=== PATIENT | female | born 1990 | race Caucasian/White ===

== ENCOUNTER 2017-05-08 04:17 | Inpatient (IN) | payer OTHER ==
[2017-05-08] MEDS ORDERED: LACTATED RINGER'S 1,000 ML IV (05:20)
[2017-05-08] MEDS ORDERED: BUTORPHANOL 2 MG INJ IV (05:30)
[2017-05-08] MEDS ORDERED: CARBOPROST 250 MCG INJ IM (05:30)
[2017-05-08] MEDS ORDERED: IBUPROFEN 600 MG TAB PO (05:30)
[2017-05-08] MEDS ORDERED: METHYLERGONOVINE 0.2 MG INJ IM (05:30)
[2017-05-08] MEDS ORDERED: LIDOCAINE 1% (MPF) 30 ML INJ INJ (05:30)
[2017-05-08] MEDS ORDERED: OXYTOCIN 30 UNITS/LR 500 ML IV (05:30)
[2017-05-08] MEDS ORDERED: MISOPROSTOL 200 MCG TAB PR (05:30)
[2017-05-08] MEDS: LACTATED RINGER'S 1,000 ML IV (05:59)
[2017-05-08 06:42] LABS: ADD MAN DIFF? NO
[2017-05-08 06:57] LABS: BASOPHIL # 0.1 10^3/ul (0.0-0.1); BASOPHILS % 0.3 % (0.0-2.0); EOSINOPHILS # 0.6 10^3/ul (0.0-0.5); EOSINOPHILS % 3.5 % (0.0-7.0); HEMATOCRIT 40.9 % (37.0-47.0); HEMOGLOBIN 14.3 g/dl (12.0-16.0); LYMPHOCYTES # 2.2 10^3/ul (0.8-2.9); LYMPHOCYTES % 12.7 % (15.0-51.0); MEAN CORPUSCULAR VOLUME 85.7 fl (82.0-101.0); MEAN PLATELET VOLUME 10.3 fl (7.4-10.4); MONOCYTE # 1.2 10^3/ul (0.3-0.9); NEUTROPHIL # 13.4 10^3/ul (1.6-7.5); NEUTROPHILS % 75.9 % (39.0-77.0); PLATELET COUNT 245 10^3/UL (140-415); RED BLOOD COUNT 4.77 10^6/ul (4.20-5.40)
[2017-05-08 06:57] LABS: WHITE BLOOD COUNT 17.6 10^3/ul (4.8-10.8)
[2017-05-08 07:22] LABS: INR 0.99; PROTIME 13.2 Sec (11.9-14.9)
[2017-05-08 07:23] LABS: PARTIAL THROMBOPLASTIN TIME 32.3 Sec (25.0-35.0)
[2017-05-08] MEDS ORDERED: LIDOCAINE 2% (SDV) 5 ML INJ (07:51)
[2017-05-08 07:54] LABS: HEPATITIS B SURFACE ANTIGEN NEGATIVE (NEGATIVE)
[2017-05-08] MEDS ORDERED: FENTAnyl 2MCG/ML-ROPIV 0.2% 100 ML (07:56)
[2017-05-08] MEDS ORDERED: FENTAnyl 2MCG/ML-ROPIV 0.2% 100 ML BAG EPI (08:30)
[2017-05-08] MEDS ORDERED: NALOXONE (0.4 MG/ML) INJ IV (08:30)
[2017-05-08] MEDS ORDERED: ONDANSETRON 4 MG INJ IV ×2 (08:30→11:30)
[2017-05-08] MEDS ORDERED: DIPHENHYDRAMINE 50 MG INJ IV (08:30)
[2017-05-08 08:38] LABS: AMPHETAMINE/METHAMPHETAMINE Negative (NEGATIVE); BARBITURATES Negative (NEGATIVE); BENZODIAZEPINES Negative (NEGATIVE); CANNABINOIDS Negative (NEGATIVE); COCAINE Negative (NEGATIVE); OPIATES Negative (NEGATIVE)
[2017-05-08] MEDS: OXYTOCIN 30 UNITS/LR 500 ML IV ×3 (09:42→12:03)
[2017-05-08] MEDS ORDERED: OXYCODONE/ASPIRIN (4.88/325) TAB PO ×2 (11:30)
[2017-05-08] MEDS ORDERED: HYDROCODONE/APAP (5/325) TAB PO ×2 (11:30)
[2017-05-08] MEDS ORDERED: ACETAMINOPHEN 325 MG TAB PO (11:30)
[2017-05-08] MEDS: IBUPROFEN 600 MG TAB PO ×2 (12:01→17:34)
[2017-05-08] MEDS: BENZOCAINE 20% 56 ML SPRAY TOP (12:01)
[2017-05-08] MEDS: LANOLIN 7 GM TUBE TOP (12:02)
[2017-05-08] MEDS: DIBUCAINE 1% 30 GM OINT TOP (12:02)
[2017-05-08] MEDS: WITCH HAZEL/GLYCERIN PAD PR (12:04)
[2017-05-08 15:00] LABS: RAPID PLASMA REAGIN NONREACTIVE (NR)
[2017-05-08] MEDS: SENNA/DOCUSATE NA (8.6MG/50MG) TAB PO (21:00)
[2017-05-09] MEDS: IBUPROFEN 600 MG TAB PO ×4 (06:12→18:20)
[2017-05-09] MEDS: SENNA/DOCUSATE NA (8.6MG/50MG) TAB PO ×2 (09:41→21:45)
[2017-05-09 11:10] LABS: ADD MAN DIFF? NO
[2017-05-09 11:13] LABS: WHITE BLOOD COUNT 11.5 10^3/ul (4.8-10.8)
[2017-05-09 11:13] LABS: BASOPHILS % 0.3 % (0.0-2.0); EOSINOPHILS # 0.3 10^3/ul (0.0-0.5); EOSINOPHILS % 2.6 % (0.0-7.0); HEMATOCRIT 36.3 % (37.0-47.0); HEMOGLOBIN 12.1 g/dl (12.0-16.0); LYMPHOCYTES # 2.1 10^3/ul (0.8-2.9); LYMPHOCYTES % 17.9 % (15.0-51.0); MEAN CORPUSCULAR HEMOGLOBIN 29.4 pg (29.0-33.0); MEAN CORPUSCULAR HGB CONC 33.3 g/dl (32.0-37.0); MEAN CORPUSCULAR VOLUME 88.3 fl (82.0-101.0); MEAN PLATELET VOLUME 9.9 fl (7.4-10.4); MONOCYTE # 0.6 10^3/ul (0.3-0.9); MONOCYTES % 5.4 % (0.0-11.0); NEUTROPHIL # 8.5 10^3/ul (1.6-7.5); NEUTROPHILS % 73.4 % (39.0-77.0); PLATELET COUNT 215 10^3/UL (140-415); RED BLOOD COUNT 4.11 10^6/ul (4.20-5.40); RED CELL DISTRIBUTION WIDTH 13.1 % (11.5-14.5)
[2017-05-10] MEDS: IBUPROFEN 600 MG TAB PO ×3 (00:05→12:03)
[2017-05-10] MEDS: MEASLES,MUMPS,RUBELLA VACCINE INJ SC* (09:00)
[2017-05-10] MEDS: SENNA/DOCUSATE NA (8.6MG/50MG) TAB PO (09:41)
== END 2017-05-10 15:15 | disposition home or self-care (01) | DRG 775 ==
LOC: OBT 04:17 → L-D 04:18 → OBT 05:27 → L-D 05:29 → PP1 11:53
PROVIDERS: Obstetrics & Gynecology
PROC: 10E0XZZ Delivery of Products of Conception, External Approach (ICD-10-PCS; principal; 2017-05-08)
PROC: 0HQ9XZZ Repair Perineum Skin, External Approach (ICD-10-PCS; 2017-05-08)
DX: O70.9 Perineal laceration during delivery, unspecified (principal); Z37.0 Single live birth; Z3A.40 40 weeks gestation of pregnancy
CPT/HCPCS: 62319; 76815; 80307; 85025; 85610; 85730; 86592; 86850; 86900; 86901; 87340; 99464